=== PATIENT | male | born 1940 ===

== ENCOUNTER → 2018-03-07 | Outpatient (CLI) | payer OTHER | END | disposition home or self-care (01) | LOC: LAB SHORT 07:38 → PLD 07:38 | DX: D22.5 Melanocytic nevi of trunk (principal) | CPT/HCPCS: 88305 ==

== ENCOUNTER → 2019-09-25 | Outpatient (CLI) | payer OTHER ==
[~2019-09-25] MED LIST: 5-FU TOP; ADRENALIN1 MG/1 M1 INJ; MUPIROCIN TOP; [UNRECOGNIZED DRUG - OTHER]
[2019-09-25 10:07] LABS: Source, Urine Clean Catch
[2019-09-25 11:29] LABS: Appearance, Urine Clear (Clear); Bilirubin, Urine Neg (Neg); Blood, Urine Neg (Neg); Color, Urine Yellow (P-Yellow); Glucose Qualitative, Urine Neg (Neg); Ketones, Urine Neg (Neg); Leukocyte Esterase, Urine Neg (Neg); Nitrite, Urine Neg (Neg); Protein, Urine Neg (Neg); Specific Gravity, Urine 1.005 (1.003-1.022); Urobilinogen, Urine NORM (Normal)
== END ==
LOC: OLS 10:05 → LAB SHORT 10:05
PROVIDERS: Internal Medicine
DX: R30.0 Dysuria (principal)
CPT/HCPCS: 81003

== ENCOUNTER 2023-06-19 12:09 | Day surgery (SDC) | payer OTHER ==
[~2023-06-19] VITALS: Ht 175.3 cm; Wt 68.5 kg
[~2023-06-19 12:09] MED LIST changes: +Amlodipine Bes2.5 MG
[2023-06-19 13:40] VITALS: BP 115/83
--- NOTE | 2023-06-19 13:42 | NUR ---
06/19/23 1342 Valerie Delgadillo IV DC'D CATH INTACT. PT TOLERATED WELL. GAUZE IN PLACE (PT REFUSED COBAN)
== END 2023-06-19 13:32 | disposition home or self-care (01) ==
LOC: ORSCSDS 12:09
PROVIDERS: Internal Medicine Gastroenterology
PROC: 0DBK8ZX Excision of Ascending Colon, Via Natural or Artificial Opening Endoscopic, Diagnostic (ICD-10-PCS; principal; 2023-06-19 14:15)
DX: Z12.11 Encounter for screening for malignant neoplasm of colon (principal); Z86.010 Personal history of colon polyps; D12.2 Benign neoplasm of ascending colon; K57.30 Diverticulosis of large intestine without perforation or abscess without bleeding; Z79.899 Other long term (current) drug therapy
CPT/HCPCS: 88305; J2704; J7120

== ENCOUNTER → 2025-08-07 | Outpatient (CLI) | payer OTHER | END | disposition home or self-care (01) | LOC: LAB 10:00 → LAB SHORT 10:00 | DX: R10.13 Epigastric pain (principal) | CPT/HCPCS: 87338 ==